=== PATIENT | male | born 1955 | race American Indian/Alaskan Native ===

== ENCOUNTER 2020-02-15 06:44 | Emergency (ER) | payer MEDICARE ==
[2020-02-15] MEDS ORDERED: HYDROmorphone 1 MG/1 ML INJ IV ONE (08:05)
[2020-02-15] MEDS ORDERED: ONDANSETRON 4 MG/2 ML INJ IV ONE (08:05)
--- NOTE | 2020-02-15 08:30 | Emergency Department Report ---
ED Male HPI - General Chief complaint: Urogenital-Male Stated complaint: UNABLE TO URINATE Time Seen by Provider: 02/15/20 07:53 Source: patient Mode of arrival: Ambulatory Limitations: No Limitations - History of Present Illness Initial comments: 64-year-old male with a past medical history of BPH, hypertension, asthma, and diabetes presents to the hospital with complaints of no drainage from Browne catheter. Patient has had problems with enlarged prostate and intermittent urinary retention for years. Denies history of prostate cancer. 1 month ago patient presented to [facility] and had a Browne catheter placed in the ER due to urinary retention. Catheter stopped draining at 1 AM last night. Patient complains of burning around penis with urine output and having to strain to get urine to come out. He also complains of suprapubic discomfort. No reports of nausea, vomiting, or fever. He states he is scheduled for a surgical urology procedure here at [facility] tomorrow morning. - Related Data Home Medications Medication Instructions Recorded Confirmed Last Taken Albuterol Sulfate [Proventil Hfa] 2 puff IH PRN PRN 02/12/20 02/12/20 Unknown Cetirizine HCl [ZyrTEC 10mg cap] 10 mg PO DAILY 02/12/20 02/12/20 Unknown Finasteride [Proscar] 5 mg PO DAILY 02/12/20 02/12/20 Unknown Metformin HCl [metFORMIN] 1,000 mg PO BID 02/12/20 02/12/20 Unknown Metoprolol [Lopressor TAB] 50 mg PO DAILY 02/12/20 02/12/20 Unknown Omeprazole 40 mg PO DAILY 02/12/20 02/12/20 Unknown Simvastatin 20 mg PO DAILY 02/12/20 02/12/20 Unknown Tamsulosin [Flomax] 0.4 mg PO BID 02/12/20 02/12/20 Unknown captopriL [Captopril] 50 mg PO DAILY 02/12/20 02/12/20 Unknown Previous Rx's Medication Instructions Recorded Last Taken Type Cefpodoxime Proxetil 200 mg PO Q12H #14 tablet 02/15/20 Unknown Rx Allergies Allergy/AdvReac Type Severity Reaction Status Date / Time No Known Allergies Allergy Verified 02/12/20 11:39 ED Review of Systems ROS: Stated complaint: UNABLE TO URINATE Other details as noted in HPI Comment: All other systems reviewed and negative ED Past Medical Hx - Past Medical History Hx Hypertension: Yes (X 6 YRS) Hx Diabetes: Yes Hx GERD: Yes Hx Asthma: Yes (INHALER PRN) Hx HIV: No Additional medical history: enlarged prostate - Surgical History Additional Surgical History: back sx, abdominal sx - Social History Smoking Status: Never Smoker Substance Use Type: None - Medications Home Medications: Home Medications Medication Instructions Recorded Confirmed Last Taken Type Albuterol Sulfate [Proventil Hfa] 2 puff IH PRN PRN 02/12/20 02/12/20 Unknown History Cetirizine HCl [ZyrTEC 10mg cap] 10 mg PO DAILY 02/12/20 02/12/20 Unknown History Finasteride [Proscar] 5 mg PO DAILY 02/12/20 02/12/20 Unknown History Metformin HCl [metFORMIN] 1,000 mg PO BID 02/12/20 02/12/20 Unknown History Metoprolol [Lopressor TAB] 50 mg PO DAILY 02/12/20 02/12/20 Unknown History Omeprazole 40 mg PO DAILY 02/12/20 02/12/20 Unknown History Simvastatin 20 mg PO DAILY 02/12/20 02/12/20 Unknown History Tamsulosin [Flomax] 0.4 mg PO BID 02/12/20 02/12/20 Unknown History captopriL [Captopril] 50 mg PO DAILY 02/12/20 02/12/20 Unknown History Cefpodoxime Proxetil 200 mg PO Q12H #14 tablet 02/15/20 Unknown Rx ED Physical Exam - General Limitations: No Limitations - Other Other exam information: General: No acute distress Head: Atraumatic Eyes: normal appearance ENT: Moist mucous membranes Neck: Normal appearance, no midline tenderness Chest: Clear to auscultation bilaterally CV: Regular rate and rhythm Abdomen: Soft, normal bowel sounds, suprapubic tenderness with distended bladder, nondistended, no rebound or guarding : Browne catheter in place without active drainage Back: Normal inspection Extremity: Normal inspection, full range of motion Neuro: Alert O x 3, no facial asymmetry, speech clear, no gross motor sensory deficit Psych: Appropriate behavior Skin: No rash ED Course Vital Signs 02/15/20 02/15/20 02/15/20 06:45 08:00 08:30 Temperature 98.0 F Pulse Rate 86 69 70 Respiratory 18 12 20 Rate Blood Pressure 105/75 146/84 146/83 O2 Sat by Pulse 98 100 96 Oximetry 02/15/20 02/15/20 02/15/20 09:00 09:30 10:00 Temperature Pulse Rate 70 60 65 Respiratory 14 13 10 L Rate Blood Pressure 141/84 145/73 143/71 O2 Sat by Pulse 95 99 96 Oximetry 02/15/20 02/15/20 10:30 11:00 Temperature Pulse Rate 64 66 Respiratory 21 13 Rate Blood Pressure 151/78 134/67 O2 Sat by Pulse 98 Oximetry - Consultations Consultation #1: 02/15/20 10:27 case d/w DR Madison. He agrees it pt is feeling better and cath is draining then he can be d/govind to return tomorrow am as scheduled. ED Medical Decision Making - Lab Data Result diagrams: 02/15/20 08:20 02/15/20 08:20 Lab Results 02/15/20 02/15/20 02/15/20 Range/Units 08:20 08:20 09:05 WBC 5.8 (4.5-11.0) K/mm3 RBC 4.29 (3.65-5.03) M/mm3 Hgb 12.8 (11.8-15.2) gm/dl Hct 38.0 (35.5-45.6) % MCV 89 (84-94) fl MCH 30 (28-32) pg MCHC 34 (32-34) % RDW 13.8 (13.2-15.2) % Plt Count 329 (140-440) K/mm3 Lymph % (Auto) 27.1 (13.4-35.0) % [place] % (Auto) 8.8 H (0.0-7.3) % Eos % (Auto) 2.5 (0.0-4.3) % Baso % (Auto) 1.0 (0.0-1.8) % Lymph # 1.6 (1.2-5.4) K/mm3 [place] # 0.5 (0.0-0.8) K/mm3 Eos # 0.1 (0.0-0.4) K/mm3 Baso # 0.1 (0.0-0.1) K/mm3 Seg Neutrophils % 60.6 (40.0-70.0) % Seg Neutrophils # 3.5 (1.8-7.7) K/mm3 Sodium 136 L (137-145) mmol/L Potassium 4.1 (3.6-5.0) mmol/L Chloride 96.3 L (98-107) mmol/L Carbon Dioxide 27 (22-30) mmol/L Anion Gap 17 mmol/L BUN 8 L (9-20) mg/dL Creatinine 1.0 (0.8-1.5) mg/dL Estimated GFR > 60 ml/min BUN/Creatinine Ratio 8 % Glucose 111 H (75-100) mg/dL Calcium 9.7 (8.4-10.2) mg/dL Urine Color Yellow (Yellow) Urine Turbidity Clear (Clear) Urine pH 6.0 (5.0-7.0) Ur Specific Daniel 1.014 (1.003-1.030) Urine Protein 100 mg/dl (Negative) mg/dL Urine Glucose (UA) Neg (Negative) mg/dL Urine Ketones Neg (Negative) mg/dL Urine Blood Mod (Negative) Urine Nitrite Neg (Negative) Urine Bilirubin Neg (Negative) Urine Urobilinogen < 2.0 (<2.0) mg/dL Ur Leukocyte Esterase Sm (Negative) Urine WBC (Auto) 43.0 H (0.0-6.0) /HPF Urine RBC (Auto) 99.0 (0.0-6.0) /HPF U Epithel Cells (Auto) < 1.0 (0-13.0) /HPF Urine Mucus Few /HPF - Medical Decision Making Browne balloon was deflated by nurse then urine started to flow through catheter. 400ml initial browne output. Browne catheter was reinflated an continued to drain. Pt had relief in pain. Pt received IV rocephin.. Case d/w Dr Madison. pt will be discharged to follow-up in a.m. and for his surgery is scheduled. Patient provided leg bag with his Browne catheter - Differential Diagnosis BPH, prostate cancer, instructed catheter, malfunctioning Browne Critical Care Time: No Critical care attestation.: If time is entered above; I have spent that time in minutes in the direct care of this critically ill patient, excluding procedure time. ED Disposition Clinical Impression: Obstructed Browne catheter, UTI (urinary tract infection), BPH (benign prostatic hyperplasia) Disposition: TO HOME OR SELFCARE Is pt being admited?: No Does the pt Need Aspirin: No Condition: Stable Instructions: Browne Catheter Placement and Care (ED), Urinary Leg Bag (GEN), Urinary Tract Infection in Men (ED), Benign Prostatic Hypertrophy (ED) Additional Instructions: Take the medication as prescribed. Follow-up with your doctor or doctor/clinic provided. Return if symptoms worsen as indicated by your discharge instructions. Prescriptions: Cefpodoxime Proxetil 200 mg PO Q12H #14 tablet Referrals: SEN MONTENEGRO MD [Primary Care Provider] - 3-5 Days VERONICA MADISON MD [Staff Physician] - 02/16/20 (follow up for your surgery tomorrow as scheduled) Time of Disposition: 11:47
[2020-02-15 08:39] LABS: Basophils # (Auto) 0.1 K/mm3 (0.0-0.1); Eosinophils # (Auto) 0.1 K/mm3 (0.0-0.4); Eosinophils % (Auto) 2.5 % (0.0-4.3); Hemoglobin 12.8 gm/dl (11.8-15.2); Lymphocytes # (Auto) 1.6 K/mm3 (1.2-5.4); Lymphocytes % (Auto) 27.1 % (13.4-35.0); Mean Corpuscular HGB Conc 34 % (32-34); Mean Corpuscular Volume 89 fl (84-94); Monocytes # (Auto) 0.5 K/mm3 (0.0-0.8); Monocytes % (Auto) 8.8 % (0.0-7.3); Platelet Count 329 K/mm3 (140-440); Red Blood Count 4.29 M/mm3 (3.65-5.03); Red Cell Distribution Width 13.8 % (13.2-15.2)
[2020-02-15 08:56] LABS: BUN/Creatinine Ratio 8; Blood Urea Nitrogen 8 mg/dL (9-20); Calcium 9.7 mg/dL (8.4-10.2); Hemolysis Index 14
[2020-02-15 09:19] LABS: Bilirubin,Urine NEG (Negative); Blood,Urine MOD (Negative); Color,Urine Yellow (Yellow); Mucus,Urine FEW /HPF; Urobilinogen,Urine < 2.0 mg/dL (<2.0)
[2020-02-15] MEDS ORDERED: SODIUM CHLORIDE 0.9% 1000 ML 1,000 ML IV ONE (09:37)
[2020-02-15] MEDS ORDERED: cefTRIAXone/NS 1 GM/50 ML 1 GM/50 ML BAG IV ONE (10:30)
[2020-02-15 13:57] VITALS: BP 146/71
== END 2020-02-15 12:45 | disposition home or self-care (01) ==
LOC: ED 06:44
DX: T83.098A Other mechanical complication of other urinary catheter, initial encounter (principal); N40.0 Benign prostatic hyperplasia without lower urinary tract symptoms; N39.0 Urinary tract infection, site not specified; I10 Essential (primary) hypertension; J45.909 Unspecified asthma, uncomplicated; E11.9 Type 2 diabetes mellitus without complications; K21.9 Gastro-esophageal reflux disease without esophagitis; Z79.899 Other long term (current) drug therapy; Z98.890 Other specified postprocedural states
CPT/HCPCS: 36415; 80048; 81001; 85025; 87086; 96365; 96375; 99283; J0696; J1170; J2405; J7030; 51702

== ENCOUNTER 2020-02-16 06:12 | Observation (INO) | payer MEDICARE ==
[~2020-02-16 06:12] MED LIST: LACTATED RINGERS 1,000 ML IV SCH; MIDAZOLAM 2 MG/2 ML INJ IV NR
[2020-02-16] MEDS ORDERED: ceFAZolin/STERILE WATER 2 GM/20 ML SYRINGE IV NR (08:00)
--- NOTE | 2020-02-16 08:26 | Anesthesia Consultation ---
Anesthesia Consult and Med Hx - Airway Anesthetic Teeth Evaluation: Good ROM Head & Neck: Adequate Mental/Hyoid Distance: Adequate Mallampati Class: Class II Intubation Access Assessment: Good - Pulmonary Exam CTA: Yes - Cardiac Exam Cardiac Exam: RRR - Pre-Operative Health Status ASA Pre-Surgery Classification: ASA2 Proposed Anesthetic Plan: General - Pulmonary Hx Smoking: No Hx Asthma: Yes (INHALER PRN) SOB: No Hx Sleep Apnea: Yes (DX SLEEP APNEA , NO CPAP USE.) - Cardiovascular System Hx Hypertension: Yes (X 6 YRS) Hx Heart Attack/AMI: No Hx Angina: No - Central Nervous System Hx Back Pain: Yes - Endocrine Hx Renal Disease: No Hx Non-Insulin Dependent Diabetes: Yes - Other Systems Hx Cancer: No - Additional Comments Anesthesia Medical History Comments: No teeth on bottom. Many missing teeth on top, all solid
[2020-02-16] MEDS ORDERED: fentaNYL 100 MCG/2 ML INJ IV PRN (08:27)
--- NOTE | 2020-02-16 08:27 | Anesthesia Day of Surgery ---
Anesthesia Day of Surgery - Day of Surgery Patient Examined: Yes Patient H&P Reviewed: Yes Patient is NPO: Yes Beta Blockers: Yes
[2020-02-16] MEDS ORDERED: MIDAZOLAM 2 MG/2 ML INJ IV NR (09:00)
[2020-02-16] MEDS ORDERED: GLYCOPYRROLATE 0.4 MG/2 ML INJ ONE (09:22)
[2020-02-16] MEDS ORDERED: LIDOCAINE MPF (2%) 20 MG/1 ML VIAL 5 ML ONE (09:22)
[2020-02-16] MEDS ORDERED: PHENYLEPHRINE/NS 1,000 MCG/10 ML SYRINGE (OR USE) IV ONE (09:22)
[2020-02-16] MEDS ORDERED: fentaNYL 100 MCG/2 ML INJ ONE (09:22)
[2020-02-16] MEDS ORDERED: ONDANSETRON 4 MG/2 ML INJ ONE (09:22)
[2020-02-16] MEDS ORDERED: propofoL 200 MG/20 ML VIAL IV ONE (09:22)
[2020-02-16] MEDS ORDERED: IOHEXOL 300 MG/ML 100ML IV ONE (10:30)
--- NOTE | 2020-02-16 10:30 | Consultation ---
History of Present Illness - Reason for Consult Consult date: 02/16/20 HTN,DM Requesting physician: VERONICA MADISON - History of Present Illness 64 YO Male with Asthma, Obesity Hypoventilation Syndrome, HTN, DM admitted for elective urologic procedure. Consult placed by Dr. Madison for hypertension and diabetes. Patient seen and evaluated upon arrival to his room. Patient resting comfortably in bed. Patient denies pain. Patient denies fever, chills, chest pain, palpitation, shortness of breath, productive cough, skin rash, recent ill contacts. No reported nursing events. Past History Past Medical History: diabetes, hypertension, other (See HPI) Past Surgical History: Other (Urologic surgery) Social history: single. denies: smoking, alcohol abuse, prescription drug abuse Family history: diabetes, hypertension Medications and Allergies Allergies Allergy/AdvReac Type Severity Reaction Status Date / Time No Known Allergies Allergy Verified 02/12/20 11:39 Home Medications Medication Instructions Recorded Confirmed Last Taken Type Albuterol Sulfate [Proventil Hfa] 2 puff IH PRN PRN 02/12/20 02/12/20 Unknown History Finasteride [Proscar] 5 mg PO DAILY 02/12/20 02/16/20 02/16/20 05:00 History Metformin HCl [metFORMIN] 1,000 mg PO BID 02/12/20 02/16/20 02/15/20 18:00 History Metoprolol [Lopressor TAB] 50 mg PO DAILY 02/12/20 02/16/20 02/16/20 05:00 History Omeprazole 40 mg PO DAILY 02/12/20 02/16/20 02/16/20 09:00 History Simvastatin 20 mg PO DAILY 02/12/20 02/16/20 02/15/20 09:00 History Tamsulosin [Flomax] 0.4 mg PO BID 02/12/20 02/16/20 02/16/20 05:00 History captopriL [Captopril] 50 mg PO DAILY 02/12/20 02/16/20 02/16/20 05:00 History Cefpodoxime Proxetil 200 mg PO Q12H #14 tablet 02/15/20 Unknown Rx Active Meds: Active Medications Cefazolin Sodium (Ancef/Sterile Water 2 Gm/20 Ml) 2 gm IV PREOP NR Stop: 02/16/20 16:00 Fentanyl (Sublimaze) 50 mcg IV Q5MIN PRN PRN Reason: Pain , Severe (7-10) Stop: 02/16/20 23:59 Lactated Ringer's (Lactated Ringers) 1,000 mls @ 100 mls/hr IV DIRECT AAMIR Last Admin: 02/16/20 09:30 Dose: 100 mls/hr Documented by: Midazolam HCl (Versed) 2 mg IV PREOP NR Stop: 02/16/20 23:59 Last Admin: 02/16/20 09:30 Dose: 2 mg Documented by: Review of Systems Constitutional: no weight loss, no weight gain, no fever, no chills Ears, nose, mouth and throat: no ear pain, no ear discharge, no tinnitis, no decreased hearing, no nose pain, no nasal discharge Cardiovascular: no chest pain, no orthopnea, no palpitations, no syncope, no lightheadedness Respiratory: no cough, no cough with sputum, no excessive sputum, no hemoptysis, no shortness of breath Gastrointestinal: no nausea, no vomiting, no diarrhea, no constipation, no change in bowel habits Genitourinary Male: no flank pain, no discharge, no urinary frequency, no urinary hesitancy Rectal: no pain, no incontinence Musculoskeletal: no neck stiffness, no neck pain, no shooting arm pain, no arm numbness/tingling, no shooting leg pain, no leg numbness/tingling Integumentary: no rash, no pruritis, no redness, no sores, no wounds, no jaundice, no boils, no blisters Neurological: no head injury, no transient paralysis, no paralysis, no parathesias, no tingling, no seizures, no tremors, no ataxia Psychiatric: no anxiety, no memory loss, no change in sleep habits, no sleep disturbances, no insomnia, no hypersomnia, no change in appetite, no suicidal ideation, no disorientation Endocrine: no cold intolerance, no heat intolerance, no polyphagia, no excessive thirst, no polydipsia, no polyuria, no nocturia, no excessive sweating, no flushing, no weight change Hematologic/Lymphatic: no easy bruising, no easy bleeding, no lymphadenopathy, n o lymphedema Allergic/Immunologic: no urticaria, no allergic rhinitis, no wheezing, no persistent infections, no anaphylaxis, no angioedema Exam - Constitutional Vitals: Temp Pulse Resp BP Pulse Ox 99.2 F 98 H 18 116/71 100 02/16/20 08:00 02/16/20 08:00 02/16/20 08:00 02/16/20 08:00 02/16/20 08:00 General appearance: Present: no acute distress, well-nourished - EENT Eyes: Present: PERRL ENT: hearing intact, clear oral mucosa - Neck Neck: Present: supple, normal ROM - Respiratory Respiratory effort: normal Respiratory: bilateral: CTA - Cardiovascular Heart Sounds: Present: S1 & S2. Absent: rub, click - Extremities Extremities: pulses symmetrical, No edema Peripheral Pulses: within normal limits - Abdominal General gastrointestinal: Present: soft, non-tender, non-distended, normal bowel sounds Male genitourinary: Present: normal - Integumentary Integumentary: Present: clear, warm, dry - Musculoskeletal Musculoskeletal: gait normal, strength equal bilaterally - Psychiatric Psychiatric: appropriate mood/affect, intact judgment & insight - Neurologic Neurologic: CNII-XII intact, moves all extremities Results - Labs Labs: Abnormal lab results 02/16/20 Range/Units 08:42 POC Glucose 106 H (70-105) Assessment and Plan - Patient Problems (1) Hypertension Current Visit: Yes Status: Acute Qualifiers: Hypertension type: essential hypertension Qualified Code(s): I10 - Essential (primary) hypertension Plan to address problem: Monitor blood pressure every shift, continue medical management, IV hydralazine every 6 hours as needed, resume prehospital antihypertensive therapy. (2) Diabetes Current Visit: Yes Status: Acute Plan to address problem: Sliding scale insulin, Accu-Chek (3) Obesity hypoventilation syndrome Current Visit: Yes Status: Acute Plan to address problem: Submental oxygen, pulse oximetry, early ambulation, outpatient pulmonary follow- up for sleep study.
[2020-02-16] MEDS ORDERED: hydrALAZINE 20 MG/1 ML INJ IV PRN (10:31)
[2020-02-16] MEDS ORDERED: DEXTROSE 50% IN WATER (25GM) 50 ML SYRINGE IV PRN ×2 (10:32→10:55)
--- NOTE | 2020-02-16 10:54 | Short Stay Summary ---
Short Stay Documentation Date of service: 02/16/20 - History H&P: obtained from office - Allergies and Medications Current Medications: Allergies No Known Allergies Allergy (Verified 02/12/20 11:39) Home Medications Medication Instructions Recorded Confirmed Last Taken Type Albuterol Sulfate [Proventil Hfa] 2 puff IH PRN PRN 02/12/20 02/12/20 Unknown History Finasteride [Proscar] 5 mg PO DAILY 02/12/20 02/16/20 02/16/20 05:00 History Metformin HCl [metFORMIN] 1,000 mg PO BID 02/12/20 02/16/20 02/15/20 18:00 History Metoprolol [Lopressor TAB] 50 mg PO DAILY 02/12/20 02/16/20 02/16/20 05:00 History Omeprazole 40 mg PO DAILY 02/12/20 02/16/20 02/16/20 09:00 History Simvastatin 20 mg PO DAILY 02/12/20 02/16/20 02/15/20 09:00 History Tamsulosin [Flomax] 0.4 mg PO BID 02/12/20 02/16/20 02/16/20 05:00 History captopriL [Captopril] 50 mg PO DAILY 02/12/20 02/16/20 02/16/20 05:00 History Cefpodoxime Proxetil 200 mg PO Q12H #14 tablet 02/15/20 Unknown Rx Active Medications Cefazolin Sodium (Ancef/Sterile Water 2 Gm/20 Ml) 2 gm IV PREOP NR Stop: 02/16/20 16:00 Dextrose (D50w (25gm) Syringe) 50 ml IV Q30MIN PRN; Protocol PRN Reason: Hypoglycemia Fentanyl (Sublimaze) 50 mcg IV Q5MIN PRN PRN Reason: Pain , Severe (7-10) Stop: 02/16/20 23:59 Hydralazine HCl (Apresoline) 10 mg IV Q6HR PRN PRN Reason: Hypertension Lactated Ringer's (Lactated Ringers) 1,000 mls @ 100 mls/hr IV DIRECT AAMIR Last Admin: 02/16/20 09:30 Dose: 100 mls/hr Documented by: Insulin Human Lispro (Humalog) 0 unit SUB-Q ACHS AAMIR; Protocol Midazolam HCl (Versed) 2 mg IV PREOP NR Stop: 02/16/20 23:59 Last Admin: 02/16/20 09:30 Dose: 2 mg Documented by: Miscellaneous Medication (Omeprazole [Omeprazole]) 40 mg PO DAILY AAMIR Miscellaneous Medication (Simvastatin [Simvastatin]) 20 mg PO DAILY AAMIR Miscellaneous Medication (Captopril [Captopril]) 50 mg PO DAILY AAMIR - Brief post op/procedure progress note Date of procedure: 02/16/20 Pre-op diagnosis: BPH, RETENTION Post-op diagnosis: same Procedure: cysto, rt rpg, Greenlight laser, bx bladder lesion Anesthesia: GETA Surgeon: VERONICA FONG Estimated blood loss: none Pathology: none Condition: stable - Hospital course Hospital course: cipro, , ultram,norco on chart (will finish flomax & proscar & stop) browne clear + back pain---needs to see his spine surgeon again (Dr. Adarsh richard) - Disposition Condition at discharge: Stable Short Stay Discharge Plan Follow up with: SEN MONTENEGRO MD [Primary Care Provider] - 7 Days
[2020-02-16] MEDS ORDERED: HYDROcodone/ACETAMINOPHEN 5-325 MG TAB PO PRN (10:55)
[2020-02-16] MEDS ORDERED: NALOXONE 0.4 MG/1 ML INJ IV PRN (10:55)
[2020-02-16] MEDS ORDERED: ALBUTEROL 8.5 GM INHALATION IH PRN (10:59)
[2020-02-16] MEDS ORDERED: SODIUM CHLORIDE 0.9% IRRIG SOLN 2000 ML IR SCH (11:00)
[2020-02-16] MEDS ORDERED: ALBUTEROL 2.5 MG/3 ML NEBU IH PRN (11:23)
--- NOTE | 2020-02-16 11:28 | Operative Report ---
PREOPERATIVE DIAGNOSES: Benign prostatic hypertrophy, urinary retention. POSTOPERATIVE DIAGNOSES: Benign prostatic hypertrophy, urinary retention. PROCEDURE: Cystoscopy, right retrograde pyelogram, bladder biopsy and fulguration, GreenLight laser of the prostate. SURGEON: Yannick Madison MD ANESTHESIA: General. ESTIMATED BLOOD LOSS: Minimal. FLUIDS: Crystalloid. COMPLICATIONS: No complications. INDICATIONS: This patient is a 64-year-old gentleman initially seen by Dr. Glover after going into the urinary retention. It was found that Dr. Glover at [place] was not on the plan. He was subsequently referred to me. The patient was on Flomax and Proscar, but we discussed options. He agreed to proceed with GreenLight laser of the prostate. 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 DESCRIPTION OF PROCEDURE: The patient was taken to the operative suite, placed in a supine position. After adequate general anesthesia, he was placed in a dorsal lithotomy position, prepped and draped in a sterile fashion. Pancystourethroscopy was performed with a 22-Mauritian Storz cystoscope, no urethral abnormalities. He had moderate trilobar obstruction, bladder, positive trabeculation and edema, appears to be due to [place] trauma. There was one area of suspicious in the posterior aspect, which was biopsied and fulgurated. Right retrograde pyelogram was obtained with an 8-Mauritian Mercedes catheter and 8 mL of contrast. No filling defects or obstruction. Again, hardware was noted in his spine. Left UO could not be appreciated due to a significant edema but on CT, there was no hydronephrosis noted. Next, using the GreenLight laser, starting at 8 gerard, vaporization of the median lobe was performed in the right and left lateral lobes, increasing the wattage up to 120 also assisted with an increased vaporization. Nice channel could be appreciated at the end. A 24-Mauritian 3-way catheter with a Conway's drip was placed. He was extubated and taken to recovery room and will be observed overnight and go home with his [place]. JOB# [id number] C/NTS
[2020-02-16] MEDS ORDERED: INSULIN REGULAR, HUMAN 100 UNITS/1 ML SUB-Q SCH (11:30)
[2020-02-16] MEDS ORDERED: LACTATED RINGERS 1,000 ML ONE (11:52)
--- NOTE | 2020-02-16 11:57 | Post Anesthesia Evaluation ---
- Post Anesthesia Evaluation Patient Participated: Yes Airway Patent: Yes Stable Respiratory Function: Yes Nausea/Vomiting: Yes Temp > 96.8F: Yes Pain Manageable: Yes Adequeate Hydration: Yes Anesthesia Complications: No
[2020-02-16] MEDS ORDERED: HYDROmorphone 1 MG/1 ML INJ IV PRN (12:00)
[2020-02-16] MEDS: MORPHINE 2 MG/1 ML INJ IV PRN ×3 (12:19→20:58)
[2020-02-16] MEDS: SODIUM CHLORIDE 0.9% 1000 ML 1,000 ML IV SCH (13:28)
--- NOTE | 2020-02-16 14:37 | Fluoroscopy Report ---
INTRAOPERATIVE FLUOROSCOPY: RETROGRADE UROGRAPHY INDICATION: ELEVATED BPH/URINARY RETENTION. TECHNIQUE: Intraoperative spot images were obtained during the procedure. FINDINGS: There is unremarkable opacification of the right ureter and renal collecting system. Please see the p rocedure report for further details. Fluoroscopy Time: 7 seconds. Fluoroscopy Images: 3. Signer Name: Sundeep Gary MD Signed: 02/16/2020 2:33 PM Workstation Name: [id number]
[2020-02-16] MEDS: ceFAZolin/NS 1 GM/50 ML 1 GM/50 ML BAG IV SCH (17:23)
[2020-02-16] MEDS: metFORMIN 500 MG TAB PO SCH (17:24)
[2020-02-16] MEDS: INSULIN LISPRO 100 UNIT/ML SUB-Q SCH ×2 (20:17→21:00)
[2020-02-16] MEDS: TAMSULOSIN 0.4 MG CAP PO SCH (21:05)
[2020-02-16] MEDS ORDERED: NON-FORMULARY EACH (Metformin Hcl [Metformin] 1,000 MG) PO SCH (22:00)
[2020-02-16] MEDS ORDERED: PRAVASTATIN 40 MG TAB PO SCH (22:00)
[2020-02-17] MEDS: SODIUM CHLORIDE 0.9% 1000 ML 1,000 ML IV SCH (00:10)
[2020-02-17] MEDS: ceFAZolin/NS 1 GM/50 ML 1 GM/50 ML BAG IV SCH (00:11)
[2020-02-17] MEDS ORDERED: SODIUM CHLORIDE IRRI 1000 ML 1,000 ML IR ONE (01:36)
[2020-02-17] MEDS ORDERED: SODIUM CHLORIDE 0.9% IRR 1,000 ML BOTTLE IR PRN (03:34)
[2020-02-17] MEDS: MORPHINE 2 MG/1 ML INJ IV PRN ×2 (05:07→09:13)
[2020-02-17 05:50] LABS: Basophils # (Auto) 0.1 K/mm3 (0.0-0.1); Basophils % (Auto) 0.8 % (0.0-1.8); Eosinophils # (Auto) 0.2 K/mm3 (0.0-0.4); Eosinophils % (Auto) 3.2 % (0.0-4.3); Hematocrit 38.1 % (35.5-45.6); Hemoglobin 12.5 gm/dl (11.8-15.2); Lymphocytes # (Auto) 2.1 K/mm3 (1.2-5.4); Lymphocytes % (Auto) 29.9 % (13.4-35.0); Mean Corpuscular HGB Conc 33 % (32-34); Mean Corpuscular Volume 88 fl (84-94); Monocytes # (Auto) 0.7 K/mm3 (0.0-0.8); Monocytes % (Auto) 9.3 % (0.0-7.3); Platelet Count 296 K/mm3 (140-440); Red Blood Count 4.31 M/mm3 (3.65-5.03); Red Cell Distribution Width 13.7 % (13.2-15.2)
[2020-02-17 06:34] LABS: BUN/Creatinine Ratio 6; Blood Urea Nitrogen 5 mg/dL (9-20); Hemolysis Index 23
[2020-02-17] MEDS: INSULIN LISPRO 100 UNIT/ML SUB-Q SCH (08:02)
[2020-02-17] MEDS: metFORMIN 500 MG TAB PO SCH (08:12)
[2020-02-17] MEDS ORDERED: NON-FORMULARY EACH (Simvastatin [Simvastatin] 20 MG) PO SCH (10:00)
[2020-02-17] MEDS ORDERED: METOPROLOL TARTRATE 50 MG TAB PO SCH (10:00)
[2020-02-17] MEDS ORDERED: CAPTOPRIL 50 MG PO SCH (10:00)
[2020-02-17] MEDS ORDERED: NON-FORMULARY EACH (Omeprazole [Omeprazole] 40 MG) PO SCH (10:00)
[2020-02-17] MEDS ORDERED: LISINOPRIL 10 MG TAB PO SCH (10:00)
[2020-02-17] MEDS ORDERED: PANTOPRAZOLE 40 MG TAB PO SCH (10:00)
[2020-02-17] MEDS ORDERED: FINASTERIDE 5 MG TAB PO SCH (10:00)
[2020-02-17] MEDS: TAMSULOSIN 0.4 MG CAP PO SCH (10:11)
--- NOTE | 2020-02-17 11:01 | Progress Note ---
Assessment and Plan Assessment and plan: --Hypertension; moderate control Continue current antihypertensives and PRN medications --Type 2 diabetes mellitus; Accu-Chek sliding scale coverage ADA diet and insulin as needed --Obesity; counseling done Diet modification exercise as tolerated and weight reduction When medically stable --Chronic back pain; patient follows with his spine surgeon Advised to follow-up per schedule upon discharge --BPH/urinary retention; Management per urology Cystoscopy retrograde pyelography greenlight laser biopsy bladder lesion. Follow-up outpatient per schedule Patient is medically stable for discharge Needs to see his primary care physician for his medical needs Plan of care discussed with the patient and his nurse History Interval history: Patient seen and examined at the bedside in his room this morning Patient's chart, medication list, labs reviewed Patient feels better Urologist is planning to discharge him today No new complaints Vital signs noted Hospitalist Physical - Constitutional Vitals: Temp Pulse Resp BP Pulse Ox 97.9 F 72 18 131/72 97 02/17/20 07:50 02/17/20 10:13 02/17/20 07:50 02/17/20 10:13 02/17/20 07:50 General appearance: Present: no acute distress, well-nourished - EENT Eyes: Present: PERRL, EOM intact - Neck Neck: Present: supple, normal ROM - Respiratory Respiratory effort: normal Respiratory: bilateral: diminished, negative: rales, rhonchi, wheezing - Cardiovascular Rhythm: regular Heart Sounds: Present: S1 & S2 - Extremities Extremities: no ischemia, No edema - Abdominal General gastrointestinal: soft, non-tender, non-distended, normal bowel sounds - Integumentary Integumentary: Present: clear, warm - Psychiatric Psychiatric: appropriate mood/affect - Neurologic Neurologic: moves all extremities Results - Labs CBC & Chem 7: 02/17/20 05:20 02/17/20 05:20 Labs: Laboratory Last Values WBC 7.2 K/mm3 (4.5-11.0) 02/17/20 05:20 RBC 4.31 M/mm3 (3.65-5.03) 02/17/20 05:20 Hgb 12.5 gm/dl (11.8-15.2) 02/17/20 05:20 Hct 38.1 % (35.5-45.6) 02/17/20 05:20 MCV 88 fl (84-94) 02/17/20 05:20 MCH 29 pg (28-32) 02/17/20 05:20 MCHC 33 % (32-34) 02/17/20 05:20 RDW 13.7 % (13.2-15.2) 02/17/20 05:20 Plt Count 296 K/mm3 (140-440) 02/17/20 05:20 Lymph % (Auto) 29.9 % (13.4-35.0) 02/17/20 05:20 [place] % (Auto) 9.3 % (0.0-7.3) H 02/17/20 05:20 Eos % (Auto) 3.2 % (0.0-4.3) 02/17/20 05:20 Baso % (Auto) 0.8 % (0.0-1.8) 02/17/20 05:20 Lymph # 2.1 K/mm3 (1.2-5.4) 02/17/20 05:20 [place] # 0.7 K/mm3 (0.0-0.8) 02/17/20 05:20 Eos # 0.2 K/mm3 (0.0-0.4) 02/17/20 05:20 Baso # 0.1 K/mm3 (0.0-0.1) 02/17/20 05:20 Seg Neutrophils % 56.8 % (40.0-70.0) 02/17/20 05:20 Seg Neutrophils # 4.1 K/mm3 (1.8-7.7) 02/17/20 05:20 Sodium 138 mmol/L (137-145) 02/17/20 05:20 Potassium 3.7 mmol/L (3.6-5.0) 02/17/20 05:20 Chloride 101.9 mmol/L (98-107) 02/17/20 05:20 Carbon Dioxide 25 mmol/L (22-30) 02/17/20 05:20 Anion Gap 15 mmol/L 02/17/20 05:20 BUN 5 mg/dL (9-20) L 02/17/20 05:20 Creatinine 0.9 mg/dL (0.8-1.5) 02/17/20 05:20 Estimated GFR > 60 ml/min 05/05/20 05:20 BUN/Creatinine Ratio 6 % 02/17/20 05:20 Glucose 94 mg/dL (75-100) 02/17/20 05:20 POC Glucose 98 (70-105) 02/17/20 08:00 Calcium 9.0 mg/dL (8.4-10.2) 02/17/20 05:20 [place]/IV: Voiding Method Indwelling Catheter IV Catheter Type [Left Hand] Peripheral IV Active Medications - Current Medications Current Medications: Generic Name Dose Route Start Last Admin Trade Name Freq PRN Reason Stop Dose Admin Acetaminophen/Hydrocodone Bitart 2 each 02/16/20 10:55 02/17/20 00:11 [place] 5/325 PO 2 each Q4H PRN Administration Pain, Moderate (4-6) Albuterol 2.5 mg 02/16/20 11:23 Proventil IH Q4HRT PRN Shortness Of Breath Dextrose 50 ml 02/16/20 10:55 D50w (25gm) Syringe IV Q30MIN PRN Hypoglycemia Protocol Finasteride 5 mg 02/17/20 10:00 02/17/20 10:11 Proscar PO 5 mg DAILY AAMIR Administration Hydralazine HCl 10 mg 02/16/20 10:31 02/17/20 05:01 Apresoline IV 10 mg Q6HR PRN Administration Hypertension Lactated Ringer's 1,000 mls @ 100 mls/hr 02/13/20 14:00 02/16/20 09:30 Lactated Ringers IV 100 mls/hr DIRECT AAMIR Administration Sodium Chloride 1,000 mls @ 100 mls/hr 02/16/20 11:00 02/17/20 00:10 Nacl 0.9% 1000 Ml IV 100 mls/hr DIRECT AAMIR Administration Insulin Human Lispro 0 unit 02/16/20 11:30 02/17/20 08:02 Humalog SUB-Q Not Given ACHS AAMIR Protocol Lisinopril 10 mg 02/17/20 10:00 02/17/20 10:13 Zestril PO 10 mg QDAY AAMIR Administration Metformin HCl 1,000 mg 02/16/20 17:00 02/17/20 08:12 Glucophage PO 1,000 mg BIDDIAB AAMIR Administration Metoprolol Tartrate 50 mg 02/17/20 10:00 02/17/20 10:11 Metoprolol PO 50 mg DAILY AAMIR Administration Morphine Sulfate 2 mg 02/16/20 10:55 02/17/20 09:13 Morphine IV 2 mg Q4H PRN Administration Pain, Moderate (4-6) Naloxone HCl 0.1 mg 02/16/20 10:55 Naloxone IV Q2MIN PRN Res Rate </= 8 or 02 SAT < 92% Pantoprazole Sodium 40 mg 02/17/20 10:00 02/17/20 10:11 Protonix PO 40 mg DAILY AAMIR Administration Pravastatin Sodium 40 mg 02/16/20 22:00 02/16/20 21:00 Pravachol PO 40 mg QHS AAMIR Administration Sodium Chloride 2,000 ml 02/16/20 11:00 02/16/20 14:19 Nacl 0.9% IR 120,000 ml DIRECT AAMIR Administration Sodium Chloride 1,000 ml 02/17/20 03:34 02/17/20 05:02 Nacl 0.9% IR 1,000 ml PRN PRN Administration Wound Care Tamsulosin HCl 0.4 mg 02/16/20 22:00 02/17/20 10:11 Flomax PO 0.4 mg BID AAMIR Administration
[2020-02-17 12:43] VITALS: BP 144/80
== END 2020-02-17 15:40 | disposition home or self-care (01) ==
LOC: OR 06:12 → 4A 10:55
PROVIDERS: ADMIT Urology; ATTEND Urology
DX: N40.0 Benign prostatic hyperplasia without lower urinary tract symptoms (principal); R33.9 Retention of urine, unspecified; I10 Essential (primary) hypertension; E11.9 Type 2 diabetes mellitus without complications; G89.29 Other chronic pain; E66.2 Morbid (severe) obesity with alveolar hypoventilation; Z79.84 Long term (current) use of oral hypoglycemic drugs; Z79.899 Other long term (current) drug therapy; Z68.34 Body mass index [BMI] 34.0-34.9, adult
CPT/HCPCS: 36415; 52005; 52224; 52648; 74420; 80048; 82962; 85025; 88305; 94640; 96365; 96366; 96375; 96376; A9270; C1769; G0378; J0360; J0690; J2250; J2270; J2370; J2405; J2704; J3010; J7030; J7120; Q9967